=== PATIENT | female | born 1980 | race Caucasian/White ===

== ENCOUNTER 2018-11-29 00:01 | Emergency (ER) | payer MEDICAID, OTHER ==
[~2018-11-29] VITALS: Ht 165.1 cm; Wt 54.5 kg
[~2018-11-29 00:01] MED LIST: ONDA8TAB6 PO
[2018-11-29] MEDS ORDERED: IBUP-1985 PO (01:52)
[2018-11-29] MEDS ORDERED: HYDR-4353 PO (01:53)
[2018-11-29 02:48] VITALS: BP 113/64
== END 2018-11-29 02:50 | disposition home or self-care (01) ==
LOC: ER 00:02
DX: S06.0X0A Concussion without loss of consciousness, initial encounter (principal); S01.81XA Laceration without foreign body of other part of head, initial encounter; Z88.0 Allergy status to penicillin; Z79.899 Other long term (current) drug therapy; W22.8XXA Striking against or struck by other objects, initial encounter; Y93.89 Activity, other specified; Y92.814 Boat as the place of occurrence of the external cause; Y99.8 Other external cause status
CPT/HCPCS: 12013; 70450; 99284